=== PATIENT | male | born 1935 | race Caucasian/White ===

== ENCOUNTER 2017-05-03 17:56 | Inpatient (IN) | payer OTHER ==
[~2017-05-03] VITALS: Ht 165.1 cm; Wt 62.6 kg
--- NOTE | ~2017-05-03 | HC ---
[place] [address] CONSULTATION Name: JAZZ DÍAZ Room #: 419-P [facility] IN M.R.#: [id number] Admission: 05/03/17 Attend Phys: Brent Darden MD Discharge: 05/12/17 Date of : 35 Report #: [id number] THIS REPORT FOR: //name// CC: Janneth Darden DATE OF SERVICE: 05/11/2017 REASON FOR CONSULTATION: Pneumonia. HISTORY OF PRESENT ILLNESS: The patient is an 82-year-old white man, resident of an assisted living facility, admitted and diagnosed to have possible pneumonia. On the date of consultation, the patient had worsening of the chest x-ray with atelectasis of the left lung and I discussed the patient's situation with Dr. Darden and Dr. Gillespie, requesting bronchoscopy. Apparently, the patient had previous episode of aspiration pneumonia and mucus plugging that have gotten worse. PAST MEDICAL HISTORY: Hypertension. Gastroesophageal reflux. Osteoarthritis. Chronic back pain. Pharyngeal dysphagia requiring nectar thick fluids. Mental retardation. DRUG ALLERGIES: PPD, I suspect she is positive in the past. MEDICATIONS: The patient is on treatment with Zosyn 3.35 g IV every 6 hours, vancomycin 1 g IV every 12 hours, tamsulosin, acetaminophen, aspirin, ferrous sulfate, enoxaparin. REVIEW OF SYSTEMS: Unable to obtain. SOCIAL HISTORY: The patient's sister attending during my interview with the patient and physical examination, reports the patient's power of compliance attorney is the state ____. PHYSICAL EXAMINATION: GENERAL: Chronically ill appearing man, unresponsive. VITAL SIGNS: Temperature 99.6, pulse 108, respirations 28, BP 94/60. HEENMT: Pupils reactive. Mouth unable to examine. Follows no commands. NECK: Stiff. The patient is stiff all over. LUNGS: Decreased breath sounds, left lung bishop. HEART: S1, S2. No gallop or murmur. ABDOMEN: Soft, no masses or megaly. GENITORECTAL: Deferred. EXTREMITIES: No clubbing, cyanosis. LABORATORY DATA: Sodium 165, potassium 3.1, BUN 15, creatinine 0.7. WBC 10.3, [address] [place] [address] CONSULTATION Name: JAZZ DÍAZ Room #: 419-P [facility] IN [facility].#: [id number] Admission: 05/03/17 Attend Phys: Brent Darden MD Discharge: 05/12/17 Date of : 35 Report #: [id number] hemoglobin 10.2, platelets 290,000. White blood cell count differential 84% segmented neutrophils. ABGs on 05/11 revealed a pH 7.46, pCO2 of 45, pO2 of 81, bicarbonate 32 on 8 liters oxygen nasal cannula. IMAGING: Chest x-ray reveal partial complete collapse of the left lung, significant atelectasis, possible bronchial obstruction as well as pulmonary infiltrates. ASSESSMENT: 1. Partial atelectasis, left lung with pneumonia. 2. Aspiration pneumonia. 3. Mental retardation, dementia. 4. Encephalopathy, possibly secondary to above. 5. Malnutrition. SUGGESTIONS: Recommend continuing current antibiotics, vancomycin and Zosyn. Proceed with bronchoscopy. Requested Pulmonary consultation. Discussed situation with the patient's sister and Dr. Darden. Dr. Darden, thank you for requesting my suggestions in the care of your patient. <ELECTRONICALLY SIGNED> By: Jamie Larkin MD 05/13/17 1210 1307 [id number] Jamie Larkin MD /nt
--- NOTE | ~2017-05-03 | HC ---
[facility] [place] [address] CONSULTATION Name: JAZZ DÍAZ Room #: 419-P [facility] IN M.R.#: [id number] Admission: 05/03/17 Attend Phys: Brent Darden MD Discharge: 05/12/17 Date of : 35 Report #: [id number] THIS REPORT FOR: //name// CC: Janneth Darden TYPE OF REPORT: Pulmonary consultation. PRIMARY CARE PHYSICIAN: Brent Darden M.D. REASON FOR REFERRAL: Hypoxia. HISTORY OF PRESENT ILLNESS: The patient is an 82-year-old white male who was admitted on 05/03/2017 with failure to thrive and anorexia with protein-calorie malnutrition. He was found to be hyponatremic with a sodium of 118. He resides at [facility]. Pulmonary consultation was requested due to progressive hypoxia. Chest x-ray now shows infiltrates and atelectasis involving the left lower lobe. Possible bronchoscopy was also requested in this consultation request. The patient's sister is here visiting from [place]. He has durable power of collections attorney through the public warehouse administrator. There is a manager of case who was also involved with the patient's care. According to the case management and also family, the patient has been doing fair over the past few years. The patient's sister knows that there has been gradual but significant weight loss over the last couple of years. He does gets around, I believe, with a walker. He was admitted on this location with progressive failure to thrive and malnutrition. Since admission, he is now found to be hypernatremic with a sodium of 165. He remains weak and hypoxic requiring supplemental O2. The patient also has a history of rigv-ux-ezaxffvm mental retardation. Otherwise, no other history is able to be obtained from the patient due to his mental status. PAST MEDICAL HISTORY: Notable for progressive weight loss, failure to thrive, rlll-wm-fsoleqvy mental retardation, hypertension, gastroesophageal reflux disease, anxiety disorder, osteoarthritis, chronic back pain and pharyngeal dysphagia requiring nectar-thickened liquids. PAST SURGICAL HISTORY: Unknown. ALLERGIES: To TB SKIN TEST, reactions undefined. [facility] [address] [place] [address] CONSULTATION Name: JAZZ DÍAZ Room #: 419-P [facility] IN M.R.#: [id number] Admission: 05/03/17 Attend Phys: Brent Darden MD Discharge: 05/12/17 Date of : 35 Report #: [id number] CURRENT MEDICATIONS: Reviewed. This include vancomycin, Zosyn, iron sulfate, finasteride, Lovenox, nebulized albuterol, guaifenesin, IV fluids, potassium bicarbonate, metoprolol and mirtazapine. FAMILY HISTORY: Noncontributory. SOCIAL HISTORY: He lives at assisted living. He has a public warehouse administrator who is a DPOA and has a sister who lives in [place]. He has a assignment manager who is involved with the patient's care. There is no history of tobacco or alcohol use. REVIEW OF SYSTEMS: Deferred as the patient is unable to provide answers. PHYSICAL EXAMINATION: GENERAL: He is awake and appears weak with tremors involving his arms and legs. VITAL SIGNS: Temperature is 101.5 degrees Fahrenheit, pulse is 107, respiratory rate is 28 and blood pressure is 118/58 mmHg. HEENT: Normocephalic and atraumatic. NECK: Supple, without lymphadenopathy or thyromegaly. CHEST: Breath sounds are decreased in the left lung field. Right lung field revealed decreased breath sounds without any rales or wheezes. CARDIOVASCULAR: Normal S1 and S2. There are no murmurs or gallop. There is no JVD. There is no carotid bruit. Pulses are 2+/4+ bilaterally. ABDOMEN: Soft and nontender. No organomegaly or masses felt. GENITOURINARY: Deferred. RECTAL: Deferred. EXTREMITIES: There is no edema, cyanosis or clubbing. NEUROLOGICAL: The patient is arousable but does not answer. MUSCULOSKELETAL: Remarkable for moderate cachexia. RADIOLOGICAL DATA: Chest x-ray as mentioned above showing volume loss and infiltrates involving the left lung field with the pleural effusion. Right lung field appears to be clear. Chest x-ray on admission was normal. LABORATORY DATA: Sodium 165, potassium 3.1, chloride 125, CO2 is 34, BUN is 15 and creatinine 0.7. WBC is 10,300. No evidence of bandemia. Platelets are normal. Arterial blood gas revealed pH 7.46, pCO2 of 45, pO2 of 81 on 8 liters of O2. IMPRESSION: 1. Acute hypoxic respiratory failure in this 82-year-old white male with failure to thrive, progressive weight loss and weakness. He has a history of rpwy-xc-uiuxylsl mental retardation. Chest x-ray shows volume loss and infiltrates involving the left lower lobe. 2. Aspiration, pneumonia suspected given febrile illness. Volume loss and [facility] [address] [place] [address] CONSULTATION Name: JAZZ DÍAZ Room #: 642-P DIS IN M.R.#: [id number] Admission: 05/03/17 Attend Phys: Brent Darden MD Discharge: 05/12/17 Date of : 35 Report #: [id number] suggest mucus plugging along with pneumonia. 3. Hypercarbia. The patient likely has a component hypoventilation syndrome due to generalized debility and weakness. 4. History of eemo-ym-bfrxapnx mental retardation. 5. Progressive weight loss, debility and weakness due to above. 6. History of dysphagia, requiring nectar-thickened liquids. 7. Hypernatremia and hypokalemia due to volume depletion. Currently being replaced. RECOMMENDATION AND DISCUSSION: I discussed above case with the patient's sister along with Dr. Darden. The patient's sister has expressed that she would desire more conservative management to the patient rather than considering procedure such as bronchoscopy or PEG tube, which are being considered at this time. I discussed with the patient's sister that I other agree with her and that with the patient's history of mental retardation and progressive weight loss leading to weakness, overall prognosis is felt to be guarded. After discussing with Dr. Darden along with the case management that we will discuss with the public warehouse administrator who has a DPOA and decide whether to proceed with procedures or not. In the meantime, I will continue vancomycin and Zosyn to treat for presumed aspiration pneumonia. Continue IV fluids to correct electrolyte abnormalities. In terms nutrition, aggressive, we will either need to consider TPN or PEG tube. If not, we will consider palliative care in this patient. Thank you for this consultation. <ELECTRONICALLY SIGNED> By: Gerhard Kitchen MD 05/17/17 1920 1614 2049 Gerhard Kitchen MD /hubert
--- NOTE | ~2017-05-03 | EKG ---
[address] [place] [address] ELECTROCARDIOGRAM REPORT Name: JAZZ DÍAZ Room #: 424-P ADM IN M.R.#: [id number] Admission: 05/03/17 Attend Phys: Brent Darden MD Discharge: Date of : 35 Report #: [id number] THIS REPORT FOR: //name// [facility] ED Test Date: 2017-05-03 Test Time: 18:08:52 Pat Name: JAZZ DÍAZ Department: Room: 424 Gender: M Band Shover: STEFANIA : 1935 Requested By: Kenia King Order Number: [id number] MD: Kendall Todd Measurements Intervals [place] Rate: 96 P: -37 [place]: 177 QRS: -8 QRSD: 100 T: 5 QT: 368 QTc: 465 Interpretive Statements Sinus tachycardia Ventricular premature complex Left ventricular hypertrophy No previous ECG available for comparison Electronically Signed On 05-04-2017 7:24:39 CDT by Kendall Todd [email or web address] <ELECTRONICALLY SIGNED> By: Kendall Todd MD, [facility] 05/04/17 0724 1808 1808 Kendall Todd MD, FACC /EPI
--- NOTE | ~2017-05-03 | H ---
[facility] [place] [address] HISTORY AND PHYSICAL Name: JAZZ DÍAZ Room #: 424-P ADM IN M.R.#: [id number] Admission: 05/03/17 Attend Phys: Brent Darden MD Discharge: Date of : 35 Report #: [id number] THIS REPORT FOR: //name// CC: Brent Darden DATE OF SERVICE: 05/04/2017 CHIEF COMPLAINT: Failure to thrive with altered mental status. HISTORY OF PRESENT ILLNESS: The patient is an 82-year-old male who resides at [facility]. He had been doing relatively well until roughly 2-1/2 weeks prior to admission when he was found to have a sodium of 118. His lisinopril was discontinued. Attempts were made to put him on a fluid restriction. His sodium slowly corrected, on 04/29/2017 his sodium was up to 128. Unfortunately, he has had continued decline with increased urinary incontinence. On the weekend prior to admission, he reportedly did not eat a single meal. Due to concerns with his overall condition and failure to thrive, he was brought to [facility] Emergency Room for evaluation and subsequently admitted for further medical management. PAST MEDICAL HISTORY: Hypertension, gastroesophageal reflux disease, anxiety, osteoarthritis with chronic back pain, pharyngeal dysphagia requiring nectar-thickened liquids, edrx-lc-dqkfjjqn mental retardation. ALLERGIES: TB LANI SKIN TEST. MEDICATIONS: Albuterol 2.5 mg per 3 mL normal saline nebulized treatments q.4 hours p.r.n., ferrous sulfate 325 mg daily, aspirin 81 mg daily, Tylenol 650 mg q.4 hours p.r.n., ranitidine 150 mg daily, vitamin D 50,000 units monthly, finasteride 5 mg daily, simvastatin 10 mg at bedtime and lisinopril 2.5 daily, which was discontinued on 04/22/2017. FAMILY HISTORY: Noncontributory. SOCIAL HISTORY: He lives in assisted living. He does not use tobacco or alcohol. REVIEW OF SYSTEMS: CONSTITUTIONAL: In general, he is normally able to feed himself; however, has not been able to feed himself for the past several days and has not eaten over the past 48-72 hours prior to admission. HEENT: He wears glasses. PULMONARY: Negative. CARDIAC: Negative. GASTROINTESTINAL: Negative. GENITOURINARY: Recent urinary incontinence, which is new. [address] [address] HISTORY AND PHYSICAL Name: JAZZ DÍAZ Room #: 424-P [facility] IN ..#: [id number] Admission: 05/03/17 Attend Phys: Brent Darden MD Discharge: Date of : 35 Report #: [id number] MUSCULOSKELETAL: At baseline, he ambulates independently; however, has needed standby assist over the weekend. PHYSICAL EXAMINATION: GENERAL: The patient is a pleasant, cooperative, male lying in bed, in no apparent distress. VITAL SIGNS: Reveal temperature of 98.4, pulse of 95, respiratory rate 14, blood pressure 144/68. HEENT: Head is normocephalic, atraumatic. Pupils are equal and reactive. Extraocular muscles are intact. Oropharynx is dry. NECK: Supple. Trachea midline. LUNGS: Clear to auscultation. CARDIOVASCULAR: Regular rate and rhythm. ABDOMEN: Soft, nontender, nondistended with normoactive bowel sounds. SKIN: Warm and dry. Turgor is diminished. LYMPHATICS: No cervical or axillary lymphadenopathy. NEUROLOGIC: He is awake, alert, oriented only to self. He moves all extremities independently to command without focal neurologic deficit or lateralizing signs. At baseline, he is usually oriented x 3. LABORATORY DATA: Abnormals include potassium 3.3, BUN of 19, creatinine 0.6, ALT of 18, albumin of 2.9. WBC is 15.4, hemoglobin is 11.8, hematocrit is 34.8. Urinalysis shows ketones 2+, bilirubin 1+, blood 1+, leukocyte esterase trace, bacteria few. RADIOGRAPHIC STUDIES: Include CT of the head without contrast, showing no acute intracranial process. There is moderate generalized atrophy with diffuse sulcal prominence. There is bilateral paranasal sinus disease, likely chronic. Chest x-ray shows cardiomegaly with mild interstitial prominence likely chronic or subtle interstitial edema. ASSESSMENT: 1. Failure to thrive. 2. Anorexia with protein-calorie malnutrition and significant weight loss over the past week. 3. Leukocytosis with abnormal chest x-ray in a patient with known pharyngeal dysphagia. I am concerned for findings of subtle pneumonia given clinical findings. 4. Hypertension. 5. Gastroesophageal reflux disease. 6. Pharyngeal dysphagia. PLAN: Admission. Continue IV fluids with normal saline and potassium. We will start Rocephin due to leukocytosis and concern with possible pneumonia versus urinary tract infection. We will ask speech therapy to evaluate and treat. We will ask Physical Therapy to work with him on strengthening. We will continue [address] [address] HISTORY AND PHYSICAL Name: JAZZ DÍAZ Room #: 424-P ADM IN M.R.#: [id number] Admission: 05/03/17 Attend Phys: Brent Darden MD Discharge: Date of : 35 Report #: [id number] other home medications except for simvastatin since it can cause anorexia. We will initiate deep venous thrombosis prophylaxis. By: 0939 1130 Brent Darden MD /nt
[~2017-05-03 17:56] MED LIST: ALBUTEROL2.5 MG/31; ASPIRIN81 M2; FLONASE 0.05%50 MCG NASAL; IRON325 PO; LISINOPRIL2.5 MG PO; MOBIC7.5 MG PO; PROSCAR 5MG TABL5 MG PO; RANITIDINE 150150 M1; SIMVASTATIN10 MG; TYLENOL325 MG PO; VITAMIN D 5050000 I1
[2017-05-03 17:57] VITALS: BP 144/68
[2017-05-03 18:36] LABS: HEMATOCRIT 34.8 % (42.0-52.0); HEMOGLOBIN 11.8 gm/dL (14.0-18.0); MCH 28.9 pg (26.0-34.0); MCHC 33.9 g/dL (28.0-37.0); MCV 85.3 fL (80.0-100.0); PLATELET COUNT 372 thou/uL (150-400); RBC 4.08 mil/uL (4.50-6.00); RDW 14.7 % (10.5-14.5); WBC 15.4 thou/uL (4.0-11.0)
[2017-05-03 18:38] LABS: MANUAL DIFF YES
[2017-05-03 18:48] LABS: ANION GAP 7 mmol/L (7-16); BUN 19 mg/dL (7-18); CALCIUM 8.8 mg/dL (8.5-10.1); CHLORIDE 96 mmol/L (98-107); CO2 33 mmol/L (21-32); CREATININE 0.6 mg/dL (0.7-1.3); GLUCOSE 125 mg/dL (74-106); POTASSIUM 3.3 mmol/L (3.5-5.1); SODIUM 136 mmol/L (136-145)
[2017-05-03 18:56] LABS: TROPONIN-I < 0.04 ng/mL (<0.04-0.07)
[2017-05-03 19:21] LABS: ABSOLUTE NEUTROPHILS 13.2 thou/uL (1.4-8.2); TOTAL CELL COUNT 100
[2017-05-03 19:22] LABS: ANISOCYTOSIS 1+
[2017-05-03 19:37] LABS: URINE BILIRUBIN 1+ (Negative); URINE BLOOD 1+ (Negative); URINE COLOR YELLOW; URINE GLUCOSE-RANDOM* NEGATIVE (Negative); URINE KETONES 2+ (Negative); URINE NITRITE NEGATIVE (Negative); URINE PROTEIN (DIPSTICK) NEGATIVE (Negative); URINE SPECIFIC GRAVITY 1.015 (1.003-1.035)
[2017-05-03 19:38] LABS: ALBUMIN 2.9 g/dL (3.4-5.0); DIRECT BILIRUBIN 0.1 mg/dL (<0.1-0.3); TOTAL BILIRUBIN 0.5 mg/dL (<0.1-1.0); TOTAL PROTEIN 6.4 g/dL (6.4-8.2)
[2017-05-03 19:38] LABS: ICTOTEST (BILI CONFIRMATORY) Negative (Negative)
[2017-05-03 19:46] LABS: BACTERIA 1-9 Few /HPF (None Seen); CASTS None Seen /LPF (None Seen); CRYSTALS None Seen /LPF (None Seen); SQUAMOUS None Seen /LPF (0-3); URINE RBC 0-2 Rare /HPF (0-2); URINE WBC 0-5 Rare /HPF (0-5)
[2017-05-03 19:55] VITALS: BP 144/68
[2017-05-03 21:00] VITALS: BP 150/76
[2017-05-04 04:16] VITALS: BP 130/80
[2017-05-04 04:17] VITALS: BP 139/76
[2017-05-04 07:49] VITALS: BP 140/78
[2017-05-04 20:10] VITALS: BP 148/74
[2017-05-05 03:49] VITALS: BP 134/79
[2017-05-05 05:53] LABS: HEMOGLOBIN 11.2 gm/dL (14.0-18.0); MCH 27.5 pg (26.0-34.0); MCHC 31.9 g/dL (28.0-37.0); MCV 86.1 fL (80.0-100.0); RBC 4.06 mil/uL (4.50-6.00); RDW 14.6 % (10.5-14.5); WBC 11.1 thou/uL (4.0-11.0)
[2017-05-05 06:02] LABS: CALCIUM 8.1 mg/dL (8.5-10.1); CREATININE 0.8 mg/dL (0.7-1.3); POTASSIUM 3.3 mmol/L (3.5-5.1)
[2017-05-05 08:07] VITALS: BP 134/69
[2017-05-05 15:41] VITALS: BP 118/66
[2017-05-05 20:00] VITALS: BP 150/76
[2017-05-06 04:00] VITALS: BP 148/82
[2017-05-06 14:40] VITALS: BP 148/82
[2017-05-06 15:51] VITALS: BP 148/82
[2017-05-06 16:00] VITALS: BP 145/118
[2017-05-06 20:56] VITALS: BP 140/81
[2017-05-07 03:29] VITALS: BP 129/80
[2017-05-07 03:44] LABS: HEMATOCRIT 35.6 % (42.0-52.0); HEMOGLOBIN 11.6 gm/dL (14.0-18.0); MCH 27.7 pg (26.0-34.0); MCHC 32.6 g/dL (28.0-37.0); RBC 4.19 mil/uL (4.50-6.00); RDW 14.8 % (10.5-14.5); WBC 12.9 thou/uL (4.0-11.0)
[2017-05-07 03:48] LABS: CREATININE 0.8 mg/dL (0.7-1.3)
[2017-05-07 03:54] LABS: POTASSIUM 2.7 mmol/L (3.5-5.1)
[2017-05-07 08:00] VITALS: BP 142/80
[2017-05-07 16:00] VITALS: BP 123/69
[2017-05-07 19:15] VITALS: BP 137/82
[2017-05-08 04:40] VITALS: BP 117/74
[2017-05-08 07:13] VITALS: BP 152/86
[2017-05-08 15:20] VITALS: BP 123/92
[2017-05-08 20:00] VITALS: BP 125/69
[2017-05-09 04:30] VITALS: BP 133/74
[2017-05-09 07:41] VITALS: BP 100/47
[2017-05-09 15:43] VITALS: BP 128/94
[2017-05-09 19:37] VITALS: BP 99/44
[2017-05-09 21:42] VITALS: BP 113/57
[2017-05-10 04:15] VITALS: BP 116/51
[2017-05-10 05:19] LABS: HEMOGLOBIN 10.9 gm/dL (14.0-18.0); MCH 27.2 pg (26.0-34.0); MCHC 31.1 g/dL (28.0-37.0); MCV 87.3 fL (80.0-100.0); PLATELET COUNT 278 thou/uL (150-400); RBC 4.01 mil/uL (4.50-6.00); RDW 15.3 % (10.5-14.5); WBC 13.9 thou/uL (4.0-11.0)
[2017-05-10 05:30] LABS: MANUAL DIFF YES
[2017-05-10 05:36] LABS: CALCIUM 7.8 mg/dL (8.5-10.1); CREATININE 0.7 mg/dL (0.7-1.3)
[2017-05-10 05:55] LABS: POTASSIUM 2.7 mmol/L (3.5-5.1)
[2017-05-10 07:02] LABS: ABSOLUTE NEUTROPHILS 12.4 thou/uL (1.4-8.2); ANISOCYTOSIS 1+; TOTAL CELL COUNT 100
[2017-05-10 07:30] VITALS: BP 92/51
[2017-05-10 07:46] LABS: URINE BILIRUBIN NEGATIVE (Negative); URINE BLOOD 3+ (Negative); URINE GLUCOSE-RANDOM* NEGATIVE (Negative); URINE KETONES NEGATIVE (Negative); URINE NITRITE NEGATIVE (Negative); URINE PROTEIN (DIPSTICK) TRACE (Negative); URINE SPECIFIC GRAVITY 1.015 (1.003-1.035); URINE UROBILINOGEN 0.2 E.U./dl (0.2-1.0)
[2017-05-10 07:48] LABS: URINE COLOR PALE PINK
[2017-05-10 08:00] LABS: URINE WBC 6-15 Few /HPF (0-5)
[2017-05-10 08:02] LABS: CASTS None Seen /LPF (None Seen); SQUAMOUS None Seen /LPF (0-3)
[2017-05-10 08:03] LABS: CRYSTALS None Seen /LPF (None Seen); URINE RBC >20 Many /HPF (0-2)
[2017-05-10 16:00] VITALS: BP 129/81
[2017-05-10 16:16] LABS: CALCIUM 8.1 mg/dL (8.5-10.1); CREATININE 0.8 mg/dL (0.7-1.3)
[2017-05-10 16:20] LABS: POTASSIUM 2.9 mmol/L (3.5-5.1)
[2017-05-10 20:00] VITALS: BP 105/49
[2017-05-11 04:00] VITALS: BP 91/79
[2017-05-11 07:32] LABS: ABG SAMPLE TYPE ARTERIAL; BE(vivo) 7.4 mmol/L (-2 to +3); O2(CT) 14.7 mL/dL (15.0-23.0); O2Hb 95.5 % (92.0-98.0); PCO2 45.3 mmHg (35.0-45.0); PO2 81.8 mmHg (80.0-100.0); STICK SITE R.RADIAL; pH 7.467 (7.360-7.450); sO2 96.5 % (92.0-98.0); tCO2 33.4 mmol/L (24.0-30.0)
[2017-05-11 08:02] VITALS: BP 94/60
[2017-05-11 08:37] LABS: HEMATOCRIT 32.1 % (42.0-52.0); HEMOGLOBIN 10.2 gm/dL (14.0-18.0); MCH 27.7 pg (26.0-34.0); MCHC 31.8 g/dL (28.0-37.0); MCV 87.3 fL (80.0-100.0); PLATELET COUNT 290 thou/uL (150-400); RBC 3.67 mil/uL (4.50-6.00); RDW 15.5 % (10.5-14.5); WBC 10.3 thou/uL (4.0-11.0)
[2017-05-11 08:53] LABS: MANUAL DIFF YES
[2017-05-11 10:03] LABS: ABSOLUTE NEUTROPHILS 8.7 thou/uL (1.4-8.2); ANISOCYTOSIS 1+; TOTAL CELL COUNT 100
[2017-05-11 10:13] LABS: CALCIUM 7.8 mg/dL (8.5-10.1); CREATININE 0.7 mg/dL (0.7-1.3); POTASSIUM 3.1 mmol/L (3.5-5.1)
[2017-05-11 15:35] VITALS: BP 118/58
[2017-05-11 20:00] VITALS: BP 115/65
[2017-05-12 04:00] VITALS: BP 145/79
[2017-05-12] MEDS ORDERED: MORPHINE S100 MG/5 M SUBLING (09:40)
== END 2017-05-12 13:57 | disposition hospice, inpatient (51) | DRG 871 ==
LOC: ER 17:56 → 4E 21:53
PROVIDERS: Emergency Medicine; Internal Medicine
DX: A41.9 Sepsis, unspecified organism (principal); J69.0 Pneumonitis due to inhalation of food and vomit; E43 Unspecified severe protein-calorie malnutrition; J96.01 Acute respiratory failure with hypoxia; J96.02 Acute respiratory failure with hypercapnia; G93.40 Encephalopathy, unspecified; E87.0 Hyperosmolality and hypernatremia; J98.11 Atelectasis; N40.0 Benign prostatic hyperplasia without lower urinary tract symptoms; J44.9 Chronic obstructive pulmonary disease, unspecified; I10 Essential (primary) hypertension; E78.5 Hyperlipidemia, unspecified; K21.9 Gastro-esophageal reflux disease without esophagitis; R62.7 Adult failure to thrive; D72.829 Elevated white blood cell count, unspecified; F41.9 Anxiety disorder, unspecified; M19.90 Unspecified osteoarthritis, unspecified site; G89.29 Other chronic pain; R13.12 Dysphagia, oropharyngeal phase; R33.9 Retention of urine, unspecified; H91.90 Unspecified hearing loss, unspecified ear; R25.1 Tremor, unspecified; M54.9 Dorsalgia, unspecified; E87.6 Hypokalemia; E86.9 Volume depletion, unspecified; F79 Unspecified intellectual disabilities; F03.90 Unspecified dementia, unspecified severity, without behavioral disturbance, psychotic disturbance, mood disturbance, and anxiety; Z68.23 Body mass index [BMI] 23.0-23.9, adult; Z79.82 Long term (current) use of aspirin; Z88.8 Allergy status to other drugs, medicaments and biological substances; Z79.899 Other long term (current) drug therapy; Z93.1 Gastrostomy status
CPT/HCPCS: 10783